=== PATIENT | female | born 1980 | race Caucasian/White ===

== ENCOUNTER 2016-12-17 06:53 | Emergency (ER) | payer BC, OTHER ==
--- NOTE | ~2016-12-17 | CT71 ---
[facility] A Service [facility] RADIOLOGY TEXT RESULTS PATIENT: MARK GURROLA LOCATION: [facility] : 80 UNIT #: [id number] AGE: [address]: Juanita Blackburn SEX: F ORDER DR: [id number] [facility] [place], [place] [address] [id number] MR#: [id number] #: [id number] NAME: MARK GURROLA : 1980 SEX: F STUDY DATE/TIME: 12/17/2016 8:31 UNIT: JACE ROOM: STUDY DESCRIPTION: CT Head Wo Contrast Attending Physician: Juanita Blackburn Pa-C Ordering Physician: Juanita Blackburn Pa-C Primary Care Physician: Angel Lopez Pa-C MEDICAL IMAGING REPORT This report is preliminary unless electronic signature is present EXAM CT head without contrast, 12/17/2016. HISTORY 36-year-old female with migraine headache beginning today. History of migraine headaches. COMPARISON CT head, 03/12/2014. TECHNIQUE Routine unenhanced axial images performed through the brain. This CT exam was performed with one or more of the following radiation dose reduction techniques: automatic exposure control, adjustment of mA and/or kV according to patient size, and iterative reconstruction. FINDINGS No hemorrhage, acute infarction, mass lesion, or abnormal extraaxial fluid collection. No midline shift or focal mass effect. Ventricular system normal in size and configuration. No acute bony abnormality. Visualized paranasal sinuses demonstrate mucosal thickening of the left sphenoid sinus and right posterior ethmoid air cells. Visualized mastoid air cells are clear. IMPRESSION 1. No acute intracranial abnormality. 2. Minimal mucosal thickening left sphenoid sinus and right posterior ethmoid air cells. Dictated by... [facility] A Service [facility] RADIOLOGY TEXT RESULTS PATIENT: MARK GURROLA LOCATION: [facility] : 80 UNIT #: [id number] AGE: [address]: Juanita Blackburn SEX: F ORDER DR: Edmar Tomlinson M.D. THIS IS AN ELECTRONICALLY VERIFIED REPORT Edmar Tomlinson M.D. at 12/17/2016 4:29 PM YAHIR/abilio TD: 12/17/2016 09:46 JOB #: [id number] MEDICAL IMAGING REPORT Page 1 of 1 COPY
[~2016-12-17 06:53] MED LIST: ERYTHROMYC3.5 GM OPT OD; HYCODAN60 ML 5MG/ PO; HYDROCODON-ACE1 EAC7 PO; HYDROCODONE-APA1 T43 PO; IBUPROFEN800 MG PO; MEDROL DOSEPAK4 MG PO; MICROGESTIN1 TA1 PO; MULTI VITAMIN1 EACH PO; NEURONTIN300 MG PO; PHENERGAN25 MG PO; VOLTAREN75 MG PO; ZANAFLEX2 MG PO
== END 2016-12-19 11:53 | disposition home or self-care (01) ==
LOC: CED 06:53
DX: G43.909 Migraine, unspecified, not intractable, without status migrainosus (principal); F17.210 Nicotine dependence, cigarettes, uncomplicated; Z79.899 Other long term (current) drug therapy; Z88.8 Allergy status to other drugs, medicaments and biological substances
CPT/HCPCS: 36415; 70450; 84703; 96361; 96374; 96375; 99284; J1200; J1885; J2405; J2765